=== PATIENT | female | born 1950 | race Two or more races ===

== ENCOUNTER 2020-10-29 06:43 | Day surgery (SDC) | payer OTHER ==
[~2020-10-29 06:43] MED LIST: ATACAND16 MG PO; SYNTHROID75 MCG PO
[2020-10-29] MEDS ORDERED: PERCOCET 5-3251 EACH PO (14:26)
== END 2020-10-29 22:00 | disposition home or self-care (01) ==
LOC: CIR.AMB 06:43 → EDBD 11:15 → CIR.AMB 15:15
PROVIDERS: ATTEND Surgery
DX: C21.1 Malignant neoplasm of anal canal (principal); Z20.822 Contact with and (suspected) exposure to COVID-19

== ENCOUNTER 2021-01-08 07:38 | Day surgery (SDC) | payer OTHER ==
[~2021-01-08 07:38] MED LIST changes: +PERCOCET 5-3251 EACH PO
== END 2021-01-08 15:20 | disposition home or self-care (01) ==
LOC: U 07:38 → CIR.AMB 07:38
PROVIDERS: ATTEND Surgery
DX: C21.1 Malignant neoplasm of anal canal (principal); Z20.822 Contact with and (suspected) exposure to COVID-19
CPT/HCPCS: 36561; C1751

== ENCOUNTER 2021-08-05 06:00 | Day surgery (SDC) | payer OTHER ==
[2021-08-05] MEDS ORDERED: ULTRAM50 MG PO (10:13)
== END 2021-08-05 12:10 | disposition home or self-care (01) ==
LOC: CIR.AMB 06:00
PROVIDERS: ATTEND Surgery
DX: C21.1 Malignant neoplasm of anal canal (principal); K62.89 Other specified diseases of anus and rectum; K60.1 Chronic anal fissure; Z79.82 Long term (current) use of aspirin; J45.909 Unspecified asthma, uncomplicated; E03.9 Hypothyroidism, unspecified; Z20.822 Contact with and (suspected) exposure to COVID-19